=== PATIENT | female | born 1990 | race Caucasian/White ===

== ENCOUNTER 2017-11-16 19:43 | Emergency (ER) | payer OTHER | END 2017-11-17 00:12 | disposition home or self-care (01) | LOC: FTE 11-17 00:12 | DX: L73.9 Follicular disorder, unspecified (principal); I10 Essential (primary) hypertension | CPT/HCPCS: 99283; Z7502 ==

== ENCOUNTER 2018-04-30 11:07 | Emergency (ER) | payer OTHER ==
[2018-04-30] MEDS: ONDANSETRON (ODT) 4 MG TAB ODT (15:03)
[2018-04-30] MEDS: KETOROLAC 60 MG INJ IM (15:03)
== END 2018-04-30 16:42 | disposition home or self-care (01) ==
LOC: FTE 11:07
DX: R51 Headache (principal); I10 Essential (primary) hypertension
CPT/HCPCS: 81025; 96372; 99284-25